=== PATIENT | female | born 1990 | race Caucasian/White ===

== ENCOUNTER 2017-10-15 09:10 | Emergency (ER) | payer BC ==
[~2017-10-15] VITALS: Ht 172.7 cm; Wt 79.0 kg
[~2017-10-15 09:10] MED LIST: BCPILLS PO; ONDA4TAB7 SL
[2017-10-15 09:11] VITALS: Ht 172.7 cm; Wt 79.0 kg
[2017-10-15] MEDS ORDERED: SODIUM CHLORIDE 0.9% 1000ML 1,000 ML IV STA (09:46)
[2017-10-15 09:55] LABS: BASO % 0.2 %; BASO ABS # 0.01 K/uL (0-0.2); EOS % 0.7 %; EOS ABS # 0.04 K/uL (0-0.5); HEMATOCRIT 37.2 % (37-47); HEMOGLOBIN 12.6 g/dL (12.0-16.0); IG# 0.01 K/uL (0.00-0.02); LYMPH % 25.8 %; LYMPH ABS # 1.45 K/uL (1.2-3.4); MEAN CELL VOLUME 85.1 fL (80-100); MEAN CORPUSCULAR HEMOGLOBIN 28.8 pg (25-34); MEAN CORPUSCULAR HGB CONC 33.9 g/dl (32-36); MEAN PLATELET VOLUME 11.5 fL (7.4-10.4); MONO % 6.8 %; MONO ABS # 0.38 K/uL (0.11-0.59); NEUT % 66.3 %; NEUT ABS # 3.72 K/uL (1.4-6.5); PLATELET COUNT 186 K/uL (130-400); RED CELL DISTRIBUTION WIDTH CV 13.6 % (11.5-14.5); RED CELL DISTRIBUTION WIDTH SD 41.7 fL (36.4-46.3); WHITE BLOOD COUNT 5.61 K/uL (4.8-10.8)
[2017-10-15] MEDS ORDERED: ONDANSETRON 4MG OD TAB PO ONE (10:00)
[2017-10-15 10:07] LABS: ALBUMIN 3.9 gm/dl (3.4-5.0); CALCIUM 9.2 mg/dl (8.5-10.1); CREATININE 0.69 mg/dl (0.60-1.20); POTASSIUM 4.1 mmol/L (3.5-5.1)
--- NOTE | 2017-10-15 10:59 | DIAGNOSTIC IMAGING REPORT ---
ULTRASOUND OF THE PELVIS CLINICAL HISTORY: . Vaginal bleeding. COMPARISON STUDY: No priors. TECHNIQUE: Real-time, grayscale, and color flow sonography of the pelvis is performed both transabdominally and endovaginally. Images are reviewed in the transverse and longitudinal planes. FINDINGS: Uterus: The gravid uterus is normal in size and echotexture, measuring 8.0 x 5.2 x 7.2 cm. Gestation: There is a single live intrauterine gestation with an estimated heart rate of 122 bpm. A yolk sac is identified. The crown-rump length measures 0.41 cm, corresponding to estimated age of 6 weeks 1 day. This is concordant with the mean gestational sac diameter of 1.92 cm, which corresponds to an estimated age of 6 weeks 2 days. Ovaries: The ovaries are normal in size and morphology. The right ovary measures 2.7 x 2.5 x 3.1 cm and the left ovary measures 3.5 x 2.2 x 1.6 cm. Small follicles are seen bilaterally. A corpus luteum is noted on the right. Normal Doppler waveforms are shown within both ovaries. Pelvis: There is no free fluid in the cul-de-sac. No concerning adnexal lesion is seen. IMPRESSION: 1. There is a single live intrauterine gestation with an estimated age of 6 weeks 1 day by crown-rump length measurement. 2. No adnexal abnormality is seen. Electronically signed by: Rod Moura M.D. 10/15/2017 10:57 AM Dictated Date/Time: 10/15/2017 10:55 AM
[2017-10-15 11:00] VITALS: TEMP 36.5
[2017-10-15 11:30] VITALS: BP 118/64; PULSE 84; O2SAT 100
--- NOTE | 2017-10-15 18:19 | EMERGENCY ROOM VISIT NOTE ---
ED Visit Note First contact with patient: 09:15 Chief Complaint: Abdominal pain. History of Present Illness: Ms. Aggarwal is a 27 year-old white female ambulates into the ED complaining of mid abdominal pain. Historically patient reports history of polycystic ovary syndrome and is status post appendectomy. She went off of her control 1-2 months ago. Her last menstrual cycle was August 24. Patient reports 2 days ago she noted intermittent mild cramping in the mid abdomen; she describes her discomfort area as a 1-2 inch centimeter band extending bilaterally across the abdomen without side prominence. She reports she took a test 2 days ago and it was positive. She contacted her OB/ [facility] physician today and when questioned about the presence of back pain she was encouraged to come to the emergency department to rule out ectopic . Patient is currently 1 para 0. Currently she rates her overall discomfort 2/10. Her pain is nonradiating but does report that she has an associated similar cramping sensation between her shoulder blades. This is slightly more intense than her abdominal pain. She has not identified any aggravating or alleviating factors related to either pain. She has not taken any medications for either pain prior to arrival at the hospital. Associated with her pain she reports she's been slightly nauseated but has not vomited. Additionally she does note over this past weekend she moved into a new home. Patient denies fevers, chills, sweats, skin eruptions, skin color changes, upper respiratory tract symptoms, shortness of breath, chest pain, diarrhea, constipation, rectal bleeding, black/tarry stools, urinary symptoms, hematuria, vaginal bleeding, vaginal discharge. Review of Systems: As noted above in history of present illness. All body systems were reviewed and found to be negative as noted above. Past Medical History: As previously noted. Current Medications: Patient denies. Allergies to Medications: Sulfa. Social History: Patient is currently employed; she feels safe in her home environment; she denies tobacco use and admits to alcohol use. Physical Examination: Vital Signs: Date Time Temp Pulse Resp B/P (MAP) Pulse Ox O2 Delivery O2 Flow Rate FiO2 10/15/17 11:30 84 18 118/64 100 10/15/17 11:00 36.5 84 18 118/64 100 Room Air 10/15/17 09:11 36.7 92 16 136/77 100 GENERAL: 27-year-old female in no acute distress, nontoxic-appearing, afebrile and hemodynamically stable. NEUROLOGICAL: Awake, alert and oriented to person, place and time. Answering questions appropriately and following commands. Normal gait. Good hand eye coordination. SKIN: Warm, dry and pink. No soft tissue eruptions or trauma noted. HEENT: Atraumatic and normocephalic. PERRLA. Sclera white and conjunctiva pink. Oral cavity moist and pink. Pharynx is nonerythematous or edematous. Speech normal. No lymphadenopathy. Trachea midline. No jugular venous distention. BACK: No tenderness over the bony spine. No CVA tenderness. THORAX: Lungs sounds are clear to auscultation and equal bilaterally with symmetrical chest wall. No wheezing, rales or rhonchi. No crepitus, tenderness , subcutaneous air or deformities noted. HEART: Regular rate and rhythm. No gallops, rubs or murmurs are appreciated. ABDOMEN: Flat, soft and nontender. Positive bowel sounds in all quadrants. No guarding, rigidity or organomegaly. EXTREMITIES: Moves all extremities well on command and with purpose. All distal neurovascular statuses are intact and equal bilaterally. ED Course: Patient is assessed as noted above. Patient's medications were reviewed. Laboratory Testing: Test 10/15/17 09:40 Range/Units White Blood Count 5.61 4.8-10.8 K/uL Red Blood Count 4.37 4.2-5.4 M/uL Hemoglobin 12.6 12.0-16.0 g/dL Hematocrit 37.2 37-47 % Mean Corpuscular Volume 85.1 80-100 fL Mean Corpuscular Hemoglobin 28.8 25-34 pg Mean Corpuscular Hemoglobin Concent 33.9 32-36 g/dl Platelet Count 186 130-400 K/uL Mean Platelet Volume 11.5 7.4-10.4 fL Neutrophils (%) (Auto) 66.3 % Lymphocytes (%) (Auto) 25.8 % Monocytes (%) (Auto) 6.8 % Eosinophils (%) (Auto) 0.7 % Basophils (%) (Auto) 0.2 % Neutrophils # (Auto) 3.72 1.4-6.5 K/uL Lymphocytes # (Auto) 1.45 1.2-3.4 K/uL Monocytes # (Auto) 0.38 0.11-0.59 K/uL Eosinophils # (Auto) 0.04 0-0.5 K/uL Basophils # (Auto) 0.01 0-0.2 K/uL RDW Standard Deviation 41.7 36.4-46.3 fL RDW Coefficient of Variation 13.6 11.5-14.5 % Immature Granulocyte % (Auto) 0.2 % Immature Granulocyte # (Auto) 0.01 0.00-0.02 K/uL Urine Color YELLOW Urine Appearance CLEAR CLEAR Urine pH 7.5 4.5-7.5 Urine Specific Ferguson 1.018 1.000-1.030 Urine Protein NEG NEG Urine Glucose (UA) NEG NEG Urine Ketones NEG NEG Urine Occult Blood NEG NEG Urine Nitrite POS NEG Urine Bilirubin NEG NEG Urine Urobilinogen NEG NEG Urine Leukocyte Esterase SMALL NEG Urine WBC (Auto) 10-30 0-5 /hpf Urine RBC (Auto) 0-4 0-4 /hpf Urine Hyaline Casts (Auto) 1-5 0-5 /lpf Urine Epithelial Cells (Auto) 5-10 0-5 /lpf Urine Bacteria (Auto) 2+ NEG Sodium Level 136 136-145 mmol/L Potassium Level 4.1 3.5-5.1 mmol/L Chloride Level 106 98-107 mmol/L Carbon Dioxide Level 23 21-32 mmol/L Anion Gap 7.0 3-11 mmol/L Blood Urea Nitrogen 7 7-18 mg/dl Creatinine 0.69 0.60-1.20 mg/dl Est Creatinine Clear Calc Drug Dose 135.2 ml/min Estimated GFR () 138.3 Estimated GFR (Non- 119.3 BUN/Creatinine Ratio 10.7 10-20 Random Glucose 91 70-99 mg/dl Calcium Level 9.2 8.5-10.1 mg/dl Total Bilirubin 0.4 0.2-1 mg/dl Aspartate Amino Transf (AST/SGOT) 12 15-37 U/L Alanine Aminotransferase (ALT/SGPT) 18 12-78 U/L Alkaline Phosphatase 57 45-117 U/L Total Protein 7.0 6.4-8.2 gm/dl Albumin 3.9 3.4-5.0 gm/dl Globulin 3.1 2.5-4.0 gm/dl Albumin/Globulin Ratio 1.2 0.9-2 Human Chorionic Gonadotropin, Quant 55295 mIU/mL Ultrasound: Was reviewed by myself and read by the radiologist showing a single live intrauterine with measurements of 6 weeks and 1 day. Patient was hydrated with normal saline and she received 4 mg of Zofran IV for nausea. Patient was reassessed multiple times during her stay in the emergency department. Patient's case was reviewed with Dr. Nolasco; we agreed on diagnostic approach, treatment, disposition and plan. Patient was educated about today's findings and instructed on her treatment plan ; she verbalizes understanding and agreement with this plan. Clinical Impression: Abdominal pain. Decision-Making: Initially my differential diagnosis I considered ectopic , pains of early , ovarian torsion, ovarian cyst rupture, and other causes. Disposition: Patient discharged home in stable condition; prior to departure she was reassessed and subjectively reported she was pain and symptom-free. Plan: Patient was encouraged use 650 mg of acetaminophen every 6 hours and to avoid NSAID medications. Patient was encouraged to use OTC multivitamins with iron for vitamins until follow-up with [facility]. Patient was encouraged to contact her [facility] practitioner and inform them of today's ED visit and request follow-up care and treatment. Patient was encouraged return ED for worsening/uncontrolled pain, vaginal bleeding, fevers or any new/concerning symptoms.
== END 2017-10-15 11:40 | disposition home or self-care (01) ==
LOC: C.EDB 09:12
DX: R10.9 Unspecified abdominal pain (principal); O26.91 Pregnancy related conditions, unspecified, first trimester; Z3A.01 Less than 8 weeks gestation of pregnancy

== ENCOUNTER → 2017-11-06 | Outpatient (CLI) | payer BC | END | disposition home or self-care (01) | LOC: C.LABSPEC 10:46 | PROVIDERS: ATTEND Obstetrics & Gynecology | DX: Z34.01 Encounter for supervision of normal first pregnancy, first trimester (principal) ==

== ENCOUNTER → 2017-11-11 | Outpatient (CLI) | payer BC ==
[2017-11-11 17:25] LABS: BASO % 0.3 %; BASO ABS # 0.02 K/uL (0-0.2); EOS % 0.8 %; EOS ABS # 0.06 K/uL (0-0.5); HEMATOCRIT 35.1 % (37-47); HEMOGLOBIN 12.2 g/dL (12.0-16.0); IG# 0.01 K/uL (0.00-0.02); LYMPH % 25.4 %; LYMPH ABS # 1.96 K/uL (1.2-3.4); MEAN CELL VOLUME 85.2 fL (80-100); MEAN CORPUSCULAR HEMOGLOBIN 29.6 pg (25-34); MEAN CORPUSCULAR HGB CONC 34.8 g/dl (32-36); MEAN PLATELET VOLUME 11.5 fL (7.4-10.4); MONO % 8.8 %; MONO ABS # 0.68 K/uL (0.11-0.59); NEUT % 64.6 %; PLATELET COUNT 182 K/uL (130-400); RED CELL DISTRIBUTION WIDTH CV 13.4 % (11.5-14.5); RED CELL DISTRIBUTION WIDTH SD 41.7 fL (36.4-46.3); WHITE BLOOD COUNT 7.73 K/uL (4.8-10.8)
== END | disposition home or self-care (01) ==
LOC: C.LAB1850 16:28
PROVIDERS: ATTEND Obstetrics & Gynecology
DX: Z34.01 Encounter for supervision of normal first pregnancy, first trimester (principal)

== ENCOUNTER → 2017-12-16 | Outpatient (CLI) | payer BC | END | disposition home or self-care (01) | LOC: C.LAB1850 16:31 | PROVIDERS: ATTEND Obstetrics & Gynecology | DX: N39.0 Urinary tract infection, site not specified (principal); Z34.02 Encounter for supervision of normal first pregnancy, second trimester ==

== ENCOUNTER → 2018-01-13 | Outpatient (CLI) | payer BC | END | disposition home or self-care (01) | LOC: C.LABSPEC 17:40 | PROVIDERS: ATTEND Obstetrics & Gynecology | DX: N39.0 Urinary tract infection, site not specified (principal) ==

== ENCOUNTER → 2018-02-03 | Outpatient (CLI) | payer BC | END | disposition home or self-care (01) | LOC: C.LAB1850 15:05 | PROVIDERS: ATTEND Obstetrics & Gynecology | DX: N39.0 Urinary tract infection, site not specified (principal) ==

== ENCOUNTER → 2018-04-08 | Outpatient (CLI) | payer BC ==
[~2018-04-08] MED LIST changes: -BCPILLS PO; -ONDA4TAB7 SL; +PRENTAB26 PO
--- NOTE | 2018-04-08 10:28 | DIAGNOSTIC IMAGING REPORT ---
(MOMO/BLAD)RETROPERITON COMP HISTORY: 27 years-old Female Z87.448 History of [id number] History of urinary trac acute urinary tract infection COMPARISON: Renal ultrasound 02/17/2018 TECHNIQUE: Multiple real-time sonographic images of the kidneys and bladder were obtained assessing grayscale appearance and color flow FINDINGS: The right kidney measures 12.3 cm in length and demonstrates mild hydronephrosis. No right-sided renal calculi or suspicious mass lesions. Left kidney measures 11.1 cm in length and demonstrates no renal calculi, hydronephrosis or suspicious mass lesions. Echogenic floating debris is noted within the bladder lumen. No bladder wall thickening. Bilateral ureteral jets are noted identified. No postvoid residual within urinary bladder lumen. There is persistent post void hydronephrosis on the right. IMPRESSION: 1. Mild right-sided hydronephrosis without renal calculi identified. 2. Floating echogenic debris within the urinary bladder lumen. Correlate with urinalysis. 3. Unremarkable sonographic appearance of the left kidney. The above report was generated using voice recognition software. It may contain grammatical, syntax or spelling errors. Electronically signed by: Jossue Verma M.D. 04/08/2018 10:27 AM Dictated Date/Time: 04/08/2018 10:24 AM
== END | disposition home or self-care (01) ==
LOC: C.ULTR 09:46
PROVIDERS: ATTEND Urology
DX: Z87.440 Personal history of urinary (tract) infections (principal); Z87.448 Personal history of other diseases of urinary system

== ENCOUNTER → 2018-05-05 | Outpatient (CLI) | payer BC | END | disposition home or self-care (01) | LOC: C.LABSPEC 10:54 | PROVIDERS: ATTEND Obstetrics & Gynecology | DX: Z34.03 Encounter for supervision of normal first pregnancy, third trimester (principal) ==

== ENCOUNTER 2021-02-28 08:07 | Inpatient (IN) ==
[2021-02-28] MEDS ORDERED: OXYTOCIN 30 UNITS/500 ML BAG IV PRN ×2 (08:13→12:03)
--- NOTE | 2021-02-28 08:19 | History & Physical Report ---
Date of Service February 28, 2021 Assessment & Plan (1) Encounter for supervision of normal in multigravida, antepartum: 30yo at 40.2 weeks GA. Active labor 1. Fetus: Cat 1 2. Labor: Active 3. GBS negative 4. Vitals: WNL (2) Normal labor: History of Present Illness Primary Care Provider: Keron Pierce MD 30yo at 40.2 weeks GA. Presents in active labor. Denies VB, or LOF. Good FM. uncomplicated to date. OB Labs: Blood Type O Positive 07/18/20 Antibody Screen NEGATIVE 07/18/20 Hemoglobin 9.8 g/dL (12.0-16.0) L 12/06/20 Hematocrit 28.6 % (37-47) L 12/06/20 Mean Corpuscular Volume 87.4 fL (80-100) 07/18/20 Platelet Count 257 K/uL (130-400) 07/18/20 Rubella IgG Antibody Immune (Immune) 07/18/20 Rapid Plasma Reagin Nonreactive (Nonreactive) 07/18/20 Hepatitis B Surface Antigen Neg (Neg) 07/18/20 HIV (1&2) Ab and P24 Ag, 4th Gener Neg (Neg) 07/18/20 Glucose 1 Hour 50 gm Load 81 mg/dl (70-130) 12/06/20 OB Optional Labs: Chlamydia trachomatis RNA NOT DETECTED (NOT DETECTED) 07/18/20 Neisseria gonorrhoeae RNA NOT DETECTED (NOT DETECTED) 07/18/20 Labs Reviewed: declined genetics/cf/sma.--akh Allergies Allergy/AdvReac Type Severity Reaction Status Date / Time Sulfa (Sulfonamide Allergy Intermediate RASH Verified 02/27/21 10:10 Antibiotics) Home Medications Medication Instructions Recorded Confirmed Type prenat.vits,grabiel,guy-xfwa-cumui 1 tab PO DAILY 07/16/20 02/27/21 History ferrous sulfate 325 mg (65 mg 325 mg PO DAILY 01/03/21 02/27/21 History iron) tablet Patient History Medical History (Updated 02/28/21 @ 08:18 by Gavino Bañuelos MD) Urinary tract infection Surgical History History of appendectomy History of tooth extraction Family History (Updated 04/13/20 @ 14:05 by Catherine Ortega) Grandfather Family history of diabetes mellitus Hypertension Mother Hypertension Denies family history of Ovarian cancer Breast cancer Colorectal cancer Social History (Updated 07/16/20 @ 15:06 by Karoline Hussein) Smoking Status: Never smoker Second Hand Exposure: No; Hx Alcohol Use: No Hx Substance Use: No Preferred Language: Serbian Communication Ability: Effective Case Work Aide Required: No Beliefs That Will Affect Care: None marital status: marital status details: Olman (30) [phone] Current Living Situation: Spouse Current Living Situation Comment: live with spouse, child, 3 dogs, 2 cats, spouse to change litter. current occupational status: employed current occupation: teacher@ [employer] Feels Safe at Home: Yes Assistive Devices: None Physical Exam Constitutional: WD/WN, vitals as above Psychiatric: A+Ox3, euthymic affect Genitourinary: normal external appearance OB Exam Abdomen: + vertex Manual OB Exam: + cervical dilation 5 cm, + cervical effacement 90% and + station 0 OB Exam Monitor Tracing: + external FHT monitor used, + external uterine monitor used, + category I and + normal FHT variability; no early decelerations present, no late decelerations present and no variable decelerations Coding Level of Care Code None Diagnoses Encounter for supervision of normal in multigravida, antepartum Z34.80 Normal labor O80; Z37.9
[2021-02-28] MEDS: LACTATED RINGER'S 1,000 ML IV PRN ×2 (08:25→09:30)
[2021-02-28] MEDS ORDERED: SODIUM CHLORIDE 0.9% INJ 10 ML VIAL ONE (08:32)
[2021-02-28] MEDS ORDERED: BUPIVACAINE 0.25% 30 ML VIAL ONE (08:32)
[2021-02-28] MEDS ORDERED: ePHEDrine sulfate 50 MG/ML AMP ONE (08:32)
[2021-02-28] MEDS ORDERED: fentaNYL citrate 100 MCG/2 ML VIAL ONE (08:33)
[2021-02-28] MEDS ORDERED: fentaNYL 2MCG/ML ROPIVACAINE 1.25MG/ML 100 ML BAG EPI ONE (08:33)
[2021-02-28 08:38] LABS: Hematocrit (blood only) 33.7 % (37-47); Mean Corpuscular Hemoglobin 26.4 pg (25-34); Mean Corpuscular Hgb Conc 32.6 g/dL (32-36); Mean Corpuscular Volume 80.8 fL (80-100); Mean Platelet Volume 11.8 fL (7.4-10.4); Platelet Count 179 K/uL (130-400); RDW Coefficient of Variation 14.6 % (11.5-14.5); RDW Standard Deviation 42.4 fL (36.4-46.3); Red Blood Count 4.17 M/uL (4.2-5.4); White Blood Count 14.82 K/uL (4.8-10.8)
[2021-02-28] MEDS ORDERED: NALOXONE HCL 1 MG in SODIUM CHLORIDE 0.9% 1000ML 1,000 ML IV PRN (08:49)
[2021-02-28] MEDS ORDERED: fentaNYL 2MCG/ML ROPIVACAINE 1.25MG/ML 100 ML BAG EPI PRN (08:49)
[2021-02-28] MEDS ORDERED: diphenhydrAMINE 50 MG/ML VIAL IV PRN (08:49)
[2021-02-28] MEDS ORDERED: ONDANSETRON INJ 2 MG/ML 2 ML VIAL IV PRN (08:49)
[2021-02-28] MEDS ORDERED: ePHEDrine sulfate 50 MG/ML AMP IV PRN (08:49)
[2021-02-28] MEDS ORDERED: NALOXONE HCL 0.4 MG/1 ML VIAL/CARP IV PRN (08:49)
--- NOTE | 2021-02-28 08:51 | Anesthesiology Consultation ---
Date of Service February 28, 2021 Assessment & Plan (1) Encounter for pre-operative examination: Chart Review Chart Review: Patient NOT seen in Pre Admission Testing and Acceptable Risk for Labor Epidural Consults Requested none History Allergies Allergy/AdvReac Type Severity Reaction Status Date / Time Sulfa (Sulfonamide Allergy Intermediate RASH Verified 02/27/21 10:10 Antibiotics) Medications Home Medications Medication Instructions Recorded Confirmed Last Taken prenat.vits,grabiel,xqu-torb-jcgpi 1 tab PO DAILY 07/16/20 02/27/21 Unknown ferrous sulfate 325 mg (65 mg 325 mg PO DAILY 01/03/21 02/27/21 Unknown iron) tablet Active Medications Generic Name Dose Route Start Last Admin Trade Name Freq PRN Reason Stop Dose Admin Lactated Ringer's 1,000 mls @ 125 mls/hr 02/28/21 08:30 02/28/21 08:25 Lr IV 03/02/21 08:29 999 mls/hr .Q8H PRN Administration L&D Protocol Protocol Past Medical History Medical History (Updated 02/28/21 @ 08:51 by Gabino Sanders MD) Urinary tract infection Exercise / Class Metabolic Activity II 4-5 Yardwork/Stairs/Walk up hill Past Family History Family History Grandfather Family history of diabetes mellitus Hypertension Mother Hypertension Denies family history of Ovarian cancer Breast cancer Colorectal cancer Past Surgical History Surgical History History of appendectomy History of tooth extraction Past Anesthesia History No Hx of Anesthesia Complications and No Family Hx of Anesthesia Complications History of PONV No Hx of PONV and No Hx of Motion Sickness Social History Smoking Status: Never smoker Hx Alcohol Use: No Hx Substance Use: No Physical Exam Vital Signs Last Vital Signs Pulse 96 H 02/28/21 09:10 BP 122/80 02/28/21 09:10 Pulse Ox 99 02/28/21 09:06 Testing Laboratory Results 02/28/21 08:24
[2021-02-28] MEDS ORDERED: ACETAMINOPHEN 325 MG TAB PO PRN (12:03)
[2021-02-28] MEDS ORDERED: DIPHTHERIA/TETANUS/PERTUSSIS 0.5 ML SYR/VIAL IM ONE (12:03)
[2021-02-28] MEDS ORDERED: BENZOCAINE 20% AER SPR 82.5 GM CAN EXT PRN (12:03)
[2021-02-28] MEDS ORDERED: oxyCODONE/ACETAMINOPHEN 5mg/325mg TAB PO PRN (12:03)
[2021-02-28] MEDS ORDERED: bisacodyL 10 MG SUPP PR PRN (12:03)
[2021-02-28] MEDS ORDERED: HYDROCORTISONE ACETATE 25 MG SUPP PR PRN (12:03)
[2021-02-28] MEDS ORDERED: SUPERCREAM 0.870% 15 GM JAR EXT PRN (12:03)
--- NOTE | 2021-02-28 12:20 | Delivery Summary ---
Vaginal Delivery Summary Date of Service February 28, Patient is a 30-year-old 2 para 1-0-0-1 white female who presents at 40+ weeks in active labor.. She received effective epidural analgesia. She progressed to full dilation. There was a 4 bag present which was ruptured for meconium stained fluid. She pushed effectively over intact perineum for delivery of a viable male . The rest of the delivered easily was placed on the mother's abdomen for further attention and drying. The infant was vigorous. The placenta was then delivered intact with a three-vessel cord. bleeding was controlled with dilute Pitocin. There was a superficial laceration which was not bleeding and therefore not repaired. Estimated blood loss was 200 cc. Mother and were doing well after delivery. Vaginal Delivery Summary [facility] Vaginal Delivery Charge Delivery Type Details: [facility]
--- NOTE | 2021-02-28 12:31 | Anesthesia Procedure Note ---
Date of Service February 28, 2021 Anesthesia Post Epidural Note Vital Signs Vital Signs: Temp Pulse Resp BP Pulse Ox 36.2 C L 71 20 123/60 100 02/28/21 11:50 02/28/21 12:19 02/28/21 12:21 02/28/21 12:19 02/28/21 11:44 Pain Intensity Abdomen: Pain Intensity: 0 Notes Mental Status: alert / awake / arousable Patient Amnestic to Procedure: No Nausea / Vomiting: adequately controlled Pain: adequately controlled Airway Patency, RR, SpO2: stable & adequate BP & HR: stable & adequate Hydration State: stable & adequate Neuraxial Anesthesia: was administered and sensory block is resolving Anesthetic Complications: no major complications apparent and Pt Satisfied with anesthetic care Epidural: Removed without complications and With tip intact
[2021-02-28] MEDS: IBUPROFEN 600 MG TAB PO PRN ×2 (17:11→21:35)
[2021-02-28] MEDS: DOCUSATE SODIUM 100 MG CAP PO SCH (20:23)
[2021-03-01] MEDS: IBUPROFEN 600 MG TAB PO PRN ×2 (01:12→08:45)
[2021-03-01 06:27] LABS: Hematocrit (blood only) 29.5 % (37-47); Hemoglobin 9.4 g/dL (12.0-16.0); Mean Corpuscular Hemoglobin 26.6 pg (25-34); Mean Corpuscular Hgb Conc 31.9 g/dL (32-36); Mean Corpuscular Volume 83.3 fL (80-100); Mean Platelet Volume 12.1 fL (7.4-10.4); Platelet Count 158 K/uL (130-400); RDW Coefficient of Variation 14.7 % (11.5-14.5); RDW Standard Deviation 44.9 fL (36.4-46.3); Red Blood Count 3.54 M/uL (4.2-5.4); White Blood Count 13.65 K/uL (4.8-10.8)
--- NOTE | 2021-03-01 07:07 | Obstetrical Progress Note ---
Date of Service March 01, 2021 Assessment & Plan (1) care following vaginal delivery: S/p Day 1 - Feels well today. Eating well, voiding well, ambulating well. - Pain well-controlled with ibuprofen 600mg Q4H PRN. - Vital signs reviewed and WNL. - Hemoglobin reviewed. 11.0 --> 9.4 (today). - Blood Type: O+, antibody negative , GBS negative, Rubella Immune, COVID-19 negative - Continue routine care: encourage ambulation, monitor and control pain with Motrin PRN, continue regular OB diet, monitor lochia - Encourage breast feeding. - Pt counselled on discharge instructions - After discharge, will have 6-wk follow-up with Dr. Ocampo Admission and Anticipated Discharge Date Admission Date: February 28, 2021 Supervising Physician Co-Signing Physician Notes Resident Physician Supervision Note: I interviewed and examined the patient. Discussed with Dr. Garcia and agree with findings and plan as documented in the note. Any exceptions or clarifications are listed here: [None] Documented By: Laurie Velasco MD, FACOG Subjective HPI Alexa Choudhary is a 30 y/o female who is PPD 1 spontaneous vaginal delivery at 40 2/7 weeks. She reports feeling well overall this morning. No abdominal cramping and mild pain well managed on analgesics. Voiding well. Tolerating meals overnight without difficulty. Patient has been able to ambulate some. passing gas and no bowel movement. Has persistent lochia with some improvement this morning. Currently bottle feeding with formula. Review of Systems Review of Systems: ROS Denies fever or chills. Denies shortness of breath or cough. Denies chest pain. Denies breast pain. Denies dysuria. Denies leg pain or leg swelling. Physical Exam Physical Exam: PE General: Alert, oriented. No acute distress. Cardiac: Regular rate and rhythm. No murmurs. Respiratory: Clear to auscultation bilaterally a/p, no wheezes/rales/rhonchi. No increased work of breathing. Symmetrical chest rise. No respiratory distress. Abdomen: Soft, nontender, nondistended. Bowel sounds present. Uterus: Uterine fundus firm, palpable at umbilicus. Lower Extremities: No lower extremity edema or swelling. No deep calf pain. Buck's negative bilaterally. Results & Data ([facility]) Vital Signs (Past 12 Hours) Vital Signs Temp Pulse Resp BP Pulse Ox 03/01/21 03:40 36.7 C 60 16 121/76 100 03/01/21 00:15 36.6 C 84 16 126/74 99 02/28/21 20:10 36.6 C 71 16 132/79 99 Resident Activity Tracking Resident Involvement: Resident Care Provided Care Provided: Adult Hospital Medicine
[2021-03-01] MEDS ORDERED: PRENATAL VITAMIN 1 TAB PO SCH (08:00)
[2021-03-01] MEDS: DOCUSATE SODIUM 100 MG CAP PO SCH (08:42)
[2021-03-01] MEDS ORDERED: bisacodyL 5 MG TABEC PO SCH (20:00)
== END 2021-03-01 13:55 | disposition home or self-care (01) | DRG 807 ==
LOC: OPB 08:07 → 4S1 08:08 → 4S2 15:30